=== PATIENT | male | born 1990 | race Caucasian/White ===

== ENCOUNTER 2023-10-07 11:12 | Emergency (ER) | payer OTHER, SELFPAY ==
[2023-10-07 11:31] VITALS: BP 142/86; PULSE 86; RESP 16; TEMP 36.8; O2SAT 100
--- NOTE | 2023-10-07 11:47 | ED.LOWEXIN ---
HPI - Extremity Injury (Lower) General Chief Complaint: Extremity Injury, Lower Stated Complaint: right leg pain Time Seen by Provider: 10/07/23 11:47 Source: patient and RN notes reviewed Mode of arrival: ambulatory Limitations: no limitations History of Present Illness HPI Narrative: 32 year old male presents with concern for pain in his right thigh. He reports pain is been there for 2 weeks. He denies any injury or trauma. Reports seems to be getting worse. Reports no relieving or exacerbating factors. Reports it will start hurting randomly and then stop hurting. It is currently not hurting. He denies any testicle or scrotal redness, swelling, warmth, tenderness. Denies bruising, swelling, rash. Denies distal swelling of the leg MD complaint: leg injury Related Data Home Medications Medication Instructions Recorded Confirmed No Home Medications 10/07/23 10/07/23 Allergies Allergy/AdvReac Type Severity Reaction Status Date / Time No Known Allergies Allergy Verified 10/07/23 11:27 Review of Systems Review of Systems: CONSTITUTIONAL: Denies malaise, chills, sweats, or fever. CARDIOVASCULAR: Denies chest pain, palpitations, or edema. RESPIRATORY: Denies cough or dyspnea. SKIN: Denies rash or itching, bruising, redness, swelling. MUSCULOSKELETAL: Reports right thigh pain NEUROLOGIC: Denies numbness, weakness All systems reviewed & are unremarkable except as noted in HPI and below PMFSH Comments At time of signature, agree with nursing past medical, surgical, social and family history. There is no relevant family history pertinent to the presenting complaint Exam Narrative: GENERAL: Well-appearing, well-nourished, and in no acute distress. HEAD: Normocephalic, atraumatic. EYES: PERRLA, conjunctivae clear NECK: Supple. CHEST: Speaks in full sentences. No respiratory distress. HEART: Regular rate and rhythm. Normal and equal peripheral pulses. EXTREMITIES: Right lower extremity has grossly normal strength and sensation, grossly normal range of motion. No edema, erythema or ecchymosis. Normal sensation with sensitivity to light touch and pain. No tenderness. No open wounds, no skin tenting, no devitalized tissue or atrophy, no trophic changes, no obvious deformity, alignment normal, nearby joints and structures intact. No distal edema noted. skin warm, dry, pink. Capillary refill less than 3 seconds. SKIN: Warm, dry, no rash. NEURO: Alert and oriented x3. PSYCH: Normal mood and affect Course Course Emergency Course: Patient is concerned for a blood clot. At this time I do not see any evidence of that, however I cannot find a reason for patient's symptoms. He is advised to follow-up with his primary care doctor for further evaluation, and take an aspirin daily until he can see his doctor. Patient is aware of diagnosis, understands and agrees to treatment plan. Anticipatory guidance given. Patient agrees to follow-up as directed and is aware of reasons to seek care at the emergency department. Portions of this record may have been created with voice recognition software Level of Care: Express Care Visit Vital Signs Vital signs: Vital Signs Temperature 98.2 F 10/07/23 11:31 Pulse Rate 86 10/07/23 11:31 Respiratory Rate 16 10/07/23 11:31 Blood Pressure 142/86 H 10/07/23 11:31 Pulse Oximetry 100 10/07/23 11:31 Temperature 98.2 F 10/07/23 11:31 Pulse Rate 86 10/07/23 11:31 Respiratory Rate 16 10/07/23 11:31 Blood Pressure 142/86 H 10/07/23 11:31 Pulse Oximetry 100 10/07/23 11:31 Reviewed. Critical Care Time Critical Care Time Critical Care Time: No Discharge Plan Discharge Clinical Impression: Pain in right thigh Patient Disposition: Home, Self-Care Condition: Stable Instructions: Musculoskeletal Pain (ED) Additional Instructions: 1) Please follow-up with your primary care doctor in the next 1-2 days. 2) If you have any worsening of sy
== END 2023-10-07 11:58 | disposition home or self-care (01) ==
PROVIDERS: Emergency Provider Nurse Practitioner; PCP Registered Nurse
DX: M79.651 Pain in right thigh (principal); Z86.16 Personal history of COVID-19
CPT/HCPCS: 99212; G0463